=== PATIENT | male | born 1975 | race Caucasian/White ===

== ENCOUNTER 2017-05-27 06:12 | Emergency (ER) | payer OTHER ==
[~2017-05-27] VITALS: Ht 175.2 cm; Wt 64.9 kg
[~2017-05-27 06:12] MED LIST: CIPRO500 MG PO; HYDROCODONE BIT1 T11 PO; MEDROL DOSEPAK4 MG PO; NKHM; NORCO 325 MG-101 TAB PO; PERCOCET 325 MG1 TA5 PO; PREDNISONE10 MG PO; TRAMADOL HCL50 MG PO; VIBRAMYCIN100 MG PO
[2017-05-27] MEDS ORDERED: Motrin,Rufen800 MG PO (08:58)
[2017-05-27] MEDS ORDERED: NAPROSYN500 MG PO (09:20)
== END 2017-05-27 09:07 | disposition home or self-care (01) ==
LOC: ED 06:12
DX: S20.219A Contusion of unspecified front wall of thorax, initial encounter (principal); S20.222A Contusion of left back wall of thorax, initial encounter; F17.200 Nicotine dependence, unspecified, uncomplicated; G89.29 Other chronic pain; F32.9 Major depressive disorder, single episode, unspecified; Z88.0 Allergy status to penicillin; Z88.6 Allergy status to analgesic agent; W22.8XXA Striking against or struck by other objects, initial encounter; Y93.89 Activity, other specified; Y92.89 Other specified places as the place of occurrence of the external cause; Y99.8 Other external cause status

== ENCOUNTER 2020-02-27 08:23 | Emergency (ER) | payer SELFPAY ==
[~2020-02-27] VITALS: Ht 172.7 cm; Wt 65.8 kg
[~2020-02-27 08:23] MED LIST changes: +Motrin,Rufen800 MG PO; +NAPROSYN500 MG PO
[2020-02-27 09:21] LABS: BILIRUBIN Negative (Negative); BLOOD Negative (Negative); CLARITY Clear (Clear); COLOR Yellow (Yellow); GLUCOSE Negative (Negative); KETONE 1+ (Negative); LEUKO ESTERASE Trace (Negative); NITRITE Negative (Negative); PH 7.5 (4.5-8.0)
[2020-02-27 09:39] LABS: BACTERIA TRACE
== END 2020-02-27 09:30 | disposition home or self-care (01) ==
LOC: ED 08:23
PROVIDERS: Nurse Practitioner Family
DX: Z20.2 Contact with and (suspected) exposure to infections with a predominantly sexual mode of transmission (principal); F17.200 Nicotine dependence, unspecified, uncomplicated; Z88.0 Allergy status to penicillin; Z88.6 Allergy status to analgesic agent

== ENCOUNTER 2020-03-08 22:43 | Emergency (ER) | payer OTHER ==
[~2020-03-08] VITALS: Ht 167.6 cm; Wt 63.5 kg
== END 2020-03-09 00:25 | disposition left against medical advice (07) ==
LOC: ED 22:43
DX: M79.605 Pain in left leg (principal); R51.9 Headache, unspecified; M54.2 Cervicalgia; Z88.0 Allergy status to penicillin; Z88.8 Allergy status to other drugs, medicaments and biological substances; Z79.899 Other long term (current) drug therapy; V89.2XXA Person injured in unspecified motor-vehicle accident, traffic, initial encounter; Y93.89 Activity, other specified; Y92.89 Other specified places as the place of occurrence of the external cause; Y99.8 Other external cause status

== ENCOUNTER → 2020-04-24 | Outpatient (CLI) | payer OTHER | END | disposition home or self-care (01) | LOC: COVID19 13:29 | PROVIDERS: ATTEND Internal Medicine Gastroenterology | DX: Z01.812 Encounter for preprocedural laboratory examination (principal); Z20.822 Contact with and (suspected) exposure to COVID-19 ==